=== PATIENT | male | born 1995 | race Caucasian/White ===

== ENCOUNTER 2017-05-15 04:29 | Emergency (ER) | payer SELFPAY, OTHER ==
[2017-05-15] MEDS: DEXAMETHASONE 10 MG/ML 1 ML INJ IM (07:14)
[2017-05-15] MEDS: KETOROLAC 60 MG INJ IM (07:14)
== END 2017-05-15 07:52 | disposition home or self-care (01) ==
LOC: FTE 04:29
DX: J02.9 Acute pharyngitis, unspecified (principal); M54.2 Cervicalgia
CPT/HCPCS: 96372; 99284-25

== ENCOUNTER 2017-05-17 16:03 | Emergency (ER) | payer MEDICAID | END 2017-05-17 17:16 | disposition home or self-care (01) | LOC: E/R 16:03 | DX: J02.9 Acute pharyngitis, unspecified (principal) | CPT/HCPCS: 99282; Z7502 ==

== ENCOUNTER 2017-08-10 14:05 | Emergency (ER) | payer OTHER, MEDICAID | END 2017-08-10 14:26 | disposition home or self-care (01) | LOC: FTE 14:05 → E/R 14:26 | DX: S39.92XA Unspecified injury of lower back, initial encounter (principal); W18.30XA Fall on same level, unspecified, initial encounter; Y92.322 Soccer field as the place of occurrence of the external cause | CPT/HCPCS: 99283; Z7502 ==

== ENCOUNTER 2018-01-16 12:55 | Emergency (ER) | payer OTHER | END 2018-01-16 14:03 | disposition left against medical advice (07) | LOC: FTE 12:55 | DX: T16.1XXA Foreign body in right ear, initial encounter (principal); X58.XXXA Exposure to other specified factors, initial encounter; Y92.9 Unspecified place or not applicable | CPT/HCPCS: 69200; 99282-25 ==

== ENCOUNTER 2018-10-03 15:23 | Emergency (ER) | payer OTHER ==
[2018-10-03] MEDS: KETOROLAC 30 MG INJ IM (17:27)
[2018-10-03] MEDS: DEXAMETHASONE 10 MG/ML 1 ML INJ IM (17:27)
== END 2018-10-03 18:05 | disposition home or self-care (01) ==
LOC: FTE 18:05
DX: M54.5 Low back pain (principal)
CPT/HCPCS: 96372; 99284-25; J1100